=== PATIENT | female | born 1940 | race Caucasian/White ===

== ENCOUNTER 2016-10-08 17:24 | Emergency (ER) | payer OTHER ==
[~2016-10-08] VITALS: Ht 162.6 cm; Wt 61.2 kg
--- NOTE | 2016-10-08 18:09 | ED GENERAL ADULT ---
History of Present Illness General Chief Complaint: General Adult Stated Complaint: SENT BY URGENT CARE FOR DHYDRATION Source: patient, family, old records Exam Limitations: no limitations Vital Signs & Intake/Output Vital Signs & Intake/Output Vital Signs Date Time Temp Pulse Resp B/P Pulse O2 O2 Flow FiO2 Ox Delivery Rate 10/09 2039 97.4 86 22 160/66 94 Room Air 10/08 1934 96.5 86 20 178/70 96 Room Air 10/08 1748 97.7 96 18 145/71 94 Room Air ED Intake and Output 10/09 0000 10/08 1200 Intake Total 1000 Output Total Balance 1000 Intake, IV 1000 Patient 135 lb Weight Allergies Coded Allergies: No Known Allergies (10/08/16) Reconcile Medications Albuterol Sulfate (Proair Hfa) 90 MCG HFA.AER.AD 2 PUF INH PRN COPD (Reported ) Alendronate Sodium 70 MG TABLET 1 TAB PO QSUN OSTEOPOROSIS (Reported) in the morning, at least 30 minutes before the first food, beverage, or medication of the day Aspirin (Ecotrin*) 81 MG TABLET.DR 1 TAB PO DAILY HEART/BLOOD (Reported) Atorvastatin Calcium 40 MG TABLET 1 TAB PO DAILY CHOLESTEROL (Reported) Cholecalciferol (Vitamin D3) (Vitamin D) (Unknown Strength) TABLET (Unknown Dose) PO DAILY SUPPLEMENT (Reported) Fluticasone/Salmeterol (Advair 250-50 Diskus) 250 MCG-50 MCG/DOSE BLST.W.DEV 1 PUF INH BID COPD (Reported) Hydrochlorothiazide 25 MG TABLET 1 TAB PO DAILY BP (Reported) Multivitamin (Multi-Day Vitamins) 1 EACH TABLET 1 TAB PO DAILY SUPPLEMENT ( Reported) Potassium Chloride 20 MEQ TAB.ER.PRT 1 TAB PO DAILY hypokalemia Tiotropium Riley (Spiriva) 18 MCG CAP.W.DEV 1 CAP INH DAILY COPD (Reported) Triage Note: PT TO TRIAGE FROM URGENT CARE FOR POSSIBLE DEHYDRATION. PT C/O DIZZINESS AND WEAKNESS x2DAYS. NO OTHER COMPLAINTS. VSS. HX OF HTN,HIGH CHOL,COPD. Triage Nurses Notes Reviewed? yes HPI: Patient is a 75-year-old female presents complaining of generalized weakness, fatigue, lightheadedness. Symptoms onset this morning. Symptoms are currently moderate to severe. Patient was seen at an urgent care clinic, had an EKG and was referred to the emergency department for possible dehydration. Patient reports she has been eating and drinking without difficulty. Denies fevers, chills, vomiting, diarrhea, chest pain, abdominal pain. (TIAN LAGUERRE) Past History Travel History Traveled to [place] past 21 day No Medical History Any Pertinent Medical History? see below for history Cardiovascular: hypertension, hyperlipidemia Respiratory: COPD Other Medical Hx: Shingles Surgical History Surgical History: non-contributory Psychosocial History What is your primary language [place] Tobacco Use: Current Daily Use Daily Tobacco Use Amount/Type: => 5 Cigarettes daily Family History Hx Contributory? No (TIAN LAGUERRE) Review of Systems Review of Systems Constitutional: Reports: malaise, weakness. Denies: chills, fever. EENTM: Reports: no symptoms. Respiratory: Denies: cough, short of breath. Cardiovascular: Denies: chest pain, palpitations, peripheral edema, syncope. GI: Denies: abdominal pain, diarrhea, nausea, vomiting. Genitourinary: Reports: no symptoms. Musculoskeletal: Reports: no symptoms. Skin: Reports: no symptoms. Neurological/Psychological: Reports: weakness. Denies: headache, unable to move lower ext, unable to move upper ext. Hematologic/Endocrine: Denies: bruising, bleeding. Immunologic/Allergic: Denies: splenectomy. (TIAN LAGUERRE) Physical Exam Physical Exam General Appearance: alert, awake Head: atraumatic, normal appearance Eyes: Bilateral: normal appearance, PERRL, EOMI. Ears, Nose, Throat: normal pharynx, normal ENT inspection, hearing grossly normal, mildly dry mucous membranes Neck: normal inspection, supple, full range of motion Respiratory: normal breath sounds, chest non-tender, no respiratory distress, lungs clear Cardiovascular: regular rate/rhythm (no appreciable murmur) Peripheral Pulses: 2+ dorsalis pedis (R), 2+ dorsalis pedis (L) Gastrointestinal: normal bowel sounds, soft, non-tender Back: normal inspection, normal range of motion Extremities: normal inspection, normal capillary refill, normal range of motion, no edema Neurologic/Psych: no motor/sensory deficits, awake, alert, oriented x 3, normal gait, normal mood/affect Skin: intact, normal color, warm/dry Core Measures ACS in differential dx? No CVA/TIA Diagnosis: No Severe Sepsis Present: No Septic Shock Present: No (TIAN LAGUERRE) Progress Differential Diagnoses I considered the following diagnoses in my evaluation of the patient: electrolyte abnormality, anemia, renal insufficiency, dehydration, orthostasis, arrhythmia, viral syndrome Plan of Care: Orders Procedure Date/time Status Add-on Test (ER Only) 10/08 1921 Active MAGNESIUM 10/08 1833 Complete EKG 10/09 1819 Active MISTAKE 10/08 1816 Active Telemetry/Bottle Selector 10/08 1816 Active URINALYSIS 10/08 1816 Complete TROPONIN LEVEL 10/08 1816 Complete COMPREHENSIVE METABOLIC PANEL 10/08 1816 Complete CBC WITHOUT DIFFERENTIAL 10/08 1816 Complete Laboratory Tests 10/08/161833: Anion Gap 13, Estimated GFR > 60, BUN/Creatinine Ratio 20.0, Glucose 124 H, Calcium 10.7 H, Magnesium 1.4 L, Total Bilirubin 0.9, AST 33, ALT 48, Alkaline Phosphatase 70, Troponin I < 0.01, Total Protein 7.3, Albumin 4.4, Globulin 2.9, Albumin/Globulin Ratio 1.5, CBC w Diff NO MAN DIFF REQ, RBC 4.32, MCV 93.2, MCH 31.3 H, RDW 12.9, MPV 7.7, Gran % 65.5, Lymphocytes % 18.7 L, Monocytes % 11.8 H, Eosinophils % 3.5, Basophils % 0.5, Absolute Granulocytes 5.2, Absolute Lymphocytes 1.5, Absolute Monocytes 0.9 H, Absolute Eosinophils 0.3, Absolute Basophils 0, PUBS MCHC 33.6 10/08/161822: Urine Color STRAW, Urine Clarity CLEAR, Urine pH 7.5, Ur Specific [place] 1.010, Urine Protein NEG, Urine Ketones NEG, Urine Nitrite NEG, Urine Bilirubin NEG, Urine Urobilinogen 0.2, Ur Leukocyte Esterase SMALL H, Ur Microscopic SEDIMENT EXAMINED, Urine RBC RARE, Urine WBC 3-5 H, Ur Epithelial Cells MOD H, Urine Bacteria MOD H, Urine Hemoglobin NEG, Urine Glucose NEG Patient orthostatic negative. 10/08/2016 7:56:07 PM: Results of labs discussed with patient and her daughter. Patient administered oral potassium and IV magnesium. Will have patient hold her hydrochlorothiazide(as could be contributing to her hyponatremia and hypokalemia) and follow up closely with her primary care doctor for further evaluation. Discussed with Dr. Newton (TIAN LAGUERRE) Pre-Hospital EK:37 AM today: sinus tachycardia 106 bpm normal axis, normal intervals, no acute ischemic EKG changes Initial ED EKG: none (TIAN LAGUERRE) Departure Departure Disposition: HOME OR SELF CARE Condition: Stable Clinical Impression Primary Impression: Generalized weakness Secondary Impressions: Hypokalemia, Hypomagnesemia, Hyponatremia Referrals: STIVEN BUTT M.D. (PCP/Family) Additional Instructions: Follow-up with your primary doctor within the next 1-3 days for recheck and further evaluation. Do not take your hydrochlorothiazide, until directed otherwise by your primary doctor. Call in the morning for appointment. Return to the emergency department if increasing weakness, fevers, or worsening of symptoms. Departure Forms: Customer Survey General Discharge Information (TIAN LAGUERRE) Departure Prescriptions: Current Visit Scripts Potassium Chloride 1 TAB PO DAILY #5 TAB PA/SYSTEM SUPPORT TECHNICIAN Co-Sign Statement Statement: ED Attending supervision documentation- [] I saw and evaluated the patient. I have also reviewed all the pertinent lab results and diagnostic results. I agree with the findings and the plan of care as documented in the PA's/SYSTEM SUPPORT TECHNICIAN's documentation. [X] I have reviewed the ED Record and agree with the PA's/SYSTEM SUPPORT TECHNICIAN's documentation. [] Additions or exceptions (if any) to the PAs/SYSTEM SUPPORT TECHNICIAN's note and plan are summarized below: [] (KEEGAN IRVING,AD Kruger) Critical Care Note Critical Care Note Critical Care Time: non-applicable (TIAN LAGUERRE)
[2016-10-08] MEDS ORDERED: HYDROCHLOROTHIA25 M1 PO (18:36)
[2016-10-08] MEDS ORDERED: ATORVASTATIN CA40 M1 PO (18:36)
[2016-10-08] MEDS ORDERED: ADVAIR 250-501 EACH INH (18:37)
[2016-10-08] MEDS ORDERED: ALENDRONATE SOD70 M2 PO (18:38)
[2016-10-08] MEDS ORDERED: ASPIRIN EC81 M1 PO (18:38)
[2016-10-08] MEDS ORDERED: PROAIR HFA8.5 GM INH (18:38)
[2016-10-08] MEDS ORDERED: SPIRIVA18 MCG INH (18:38)
[2016-10-08] MEDS ORDERED: MULTI-DAY VITA1 EACH PO (18:39)
[2016-10-08] MEDS ORDERED: VITAMIN D2000 UNI1 PO (18:39)
[2016-10-08 18:40] LABS: ABSOLUTE BASOPHIL COUNT 0 /CUMM (0.0-0.2); ABSOLUTE EOSINOPHIL COUNT 0.3 /CUMM (0.0-0.7); ABSOLUTE GRANULOCYTE CT 5.2 /CUMM (1.4-6.5); ABSOLUTE LYMPH COUNT 1.5 /CUMM (1.2-3.4); ABSOLUTE MONOCYTE COUNT 0.9 /CUMM (0.10-0.60); BASOPHIL % 0.5 % (0.0-2.0); EOSINOPHIL % 3.5 % (0-5); GRANULOCYTE % 65.5 % (42.2-75.2); HEMATOCRIT 40.3 % (37-47); MEAN CORPUSCULAR HGB 31.3 PG (27.0-31.0); MEAN CORPUSCULAR HGB CONC 33.6 G/DL (33.0-37.0); MEAN CORPUSCULAR VOLUME 93.2 FL (81.0-99.0); MEAN PLATELET VOLUME 7.7 FL (7.4-10.4); PLATELET COUNT 305 /CUMM (130-400); RBC DISTRIBUTION WIDTH 12.9 % (11.5-14.5); RED BLOOD CELL CT 4.32 /CUMM (4.20-5.40); WHITE BLOOD CELL COUNT 7.9 /CUMM (4.8-10.8)
[2016-10-08] MEDS ORDERED: POTASSIUM CHLO20 ME2 PO (20:00)
[2016-10-08 20:40] VITALS: BP 160/66
== END 2016-10-08 21:03 ==
LOC: ERH 17:24
PROVIDERS: Physician Assistant
DX: R53.1 Weakness (principal); E87.6 Hypokalemia; E83.42 Hypomagnesemia; E87.1 Hypo-osmolality and hyponatremia; R42 Dizziness and giddiness; I10 Essential (primary) hypertension; Z72.0 Tobacco use
CPT/HCPCS: 81001; 96374